=== PATIENT | female | born 1970 | race Caucasian/White ===

== ENCOUNTER 2016-12-26 08:39 | Emergency (ER) | payer SELFPAY ==
[~2016-12-26] VITALS: Ht 162.5 cm; Wt 81.6 kg
[~2016-12-26 08:39] MED LIST: ALBUTEROL0.09 MG/A2 INH; AMOXICILLIN500 MG PO; CLINDAMYCIN HC300 MG PO; DICLOFENAC POTA50 MG PO; FIORICET 325 MG1 TAB PO; HYDROCODONE BIT1 T11 PO; IRON325 M1 PO; LEVOXYL0.1 M1 PO; LOPRESSOR25 MG PO; MEGESTROL ACETA40 MG PO; MOTRIN600 MG PO; MOTRIN800 MG PO; Motrin,Rufen800 MG PO; NAPROSYN500 MG PO; NKHM; PENICILLIN V500 MG PO; PERCOCET 325 MG1 TA2 PO; PREDNISONE50 MG PO; TESSALON PERLE200 MG PO; ULTRAM50 MG PO; ZANTAC150 MG PO; ZITHROMAX Z-PA250 MG PO; ZITHROMAX250 MG PO; ZOVIRAX200 MG PO
[2016-12-26 08:43] VITALS: BP 138/74
[2016-12-26] MEDS ORDERED: MULTI VITAMINS1 TAB PO (08:47)
[2016-12-26] MEDS ORDERED: NAPROSYN500 MG PO (09:48)
== END 2016-12-26 09:54 | disposition home or self-care (01) ==
LOC: ED 08:39
DX: S46.912A Strain of unspecified muscle, fascia and tendon at shoulder and upper arm level, left arm, initial encounter (principal); E03.9 Hypothyroidism, unspecified; Z79.899 Other long term (current) drug therapy; X58.XXXA Exposure to other specified factors, initial encounter; Y93.89 Activity, other specified; Y92.9 Unspecified place or not applicable; Y99.9 Unspecified external cause status

== ENCOUNTER 2017-04-29 19:19 | Emergency (ER) | payer OTHER ==
[~2017-04-29] VITALS: Ht 160 cm; Wt 81.6 kg
[~2017-04-29 19:19] MED LIST changes: +MULTI VITAMINS1 TAB PO
[2017-04-29 19:43] VITALS: BP 154/79
== END 2017-04-29 23:51 | disposition home or self-care (01) ==
LOC: ED 19:19
DX: M25.552 Pain in left hip (principal); M54.2 Cervicalgia; M25.519 Pain in unspecified shoulder; E03.9 Hypothyroidism, unspecified; Z88.8 Allergy status to other drugs, medicaments and biological substances; Z79.899 Other long term (current) drug therapy; V43.52XA Car driver injured in collision with other type car in traffic accident, initial encounter; Y93.89 Activity, other specified; Y92.413 State road as the place of occurrence of the external cause; Y99.8 Other external cause status

== ENCOUNTER 2017-10-03 18:08 | Emergency (ER) | payer OTHER ==
[~2017-10-03] VITALS: Ht 160 cm; Wt 81.6 kg
[2017-10-03 18:13] VITALS: BP 133/79
[2017-10-03] MEDS ORDERED: CYCLOBENZAPRINE10 MG PO (20:11)
[2017-10-03] MEDS ORDERED: PREDNISONE10 MG PO (20:11)
== END 2017-10-03 20:30 | disposition home or self-care (01) ==
LOC: ED 18:08
DX: M54.32 Sciatica, left side (principal); Z79.899 Other long term (current) drug therapy; Z88.8 Allergy status to other drugs, medicaments and biological substances

== ENCOUNTER 2019-07-08 18:09 | Emergency (ER) | payer OTHER ==
[~2019-07-08] VITALS: Ht 160 cm; Wt 81.6 kg
[~2019-07-08 18:09] MED LIST changes: +CYCLOBENZAPRINE10 MG PO; +CYCLOBENZAPRINE5 M3 PO; +LEADER NATUR1000 MCG PO; +PREDNISONE10 MG PO; +VITAMIN D-32000 UNI1 PO
[2019-07-08 18:10] VITALS: BP 127/70
== END 2019-07-08 20:42 | disposition home or self-care (01) ==
LOC: ED 18:09
DX: S93.602A Unspecified sprain of left foot, initial encounter (principal); G43.909 Migraine, unspecified, not intractable, without status migrainosus; E07.9 Disorder of thyroid, unspecified; Z88.8 Allergy status to other drugs, medicaments and biological substances; Z79.899 Other long term (current) drug therapy; X50.1XXA Overexertion from prolonged static or awkward postures, initial encounter; Y93.89 Activity, other specified; Y92.89 Other specified places as the place of occurrence of the external cause; Y99.8 Other external cause status

== ENCOUNTER 2019-08-28 06:04 | Emergency (ER) | payer OTHER ==
[~2019-08-28] VITALS: Ht 162.5 cm; Wt 81.6 kg
[2019-08-28 07:21] LABS: EOS # 0.1 10*3/uL (0.0-0.4); EOS % 1.8 % (1.0-4.0); HEMATOCRIT 41.1 % (37.0-47.0); HEMOGLOBIN 13.5 g/dl (12.0-16.0); LYMPH # 1.5 10*3/uL (1.3-4.4); LYMPH % 38.3 % (27.0-41.0); MEAN CELL VOLUME 96.9 fl (81.0-99.0); MEAN CORPUSCULAR HGB 31.8 pg (27.0-31.0); MEAN CORPUSCULAR HGB CONC 32.8 g/dl (33.0-37.0); MEAN PLATELET VOLUME 10.5 fl (9.6-12.3); MONO # 0.3 10*3/uL (0.1-1.0); MONO % 7.6 % (3.0-9.0); NEUT # 1.9 10*3/uL (2.3-7.9); PLATELET COUNT AUTOMATED 231 10*3/uL (130-400); RED BLOOD COUNT 4.24 10*6/uL (4.10-5.10); RED CELL DISTRI WIDTH 12.1 % (0-14.5); WHITE BLOOD COUNT 3.8 10*3/uL (4.8-10.8)
[2019-08-28 07:31] LABS: ALBUMIN 3.9 gm/dl (3.1-4.5); ALKALINE PHOSPHATASE 74 U/L (45-117); BUN 10 mg/dl (7-24); CHLORIDE 110 mmol/L (98-107); CREATININE 0.86 mg/dL (0.55-1.02); POTASSIUM 4.3 mmol/L (3.5-5.1); SGOT/AST 134 IU/L (3-35); SGPT/ALT 156 U/L (12-78); SODIUM 140 mmol/L (136-145); TOTAL PROTEIN 7.6 gm/dL (6.4-8.2)
[2019-08-28 08:33] VITALS: BP 130/82
[2019-08-28] MEDS ORDERED: Motrin,Rufen800 MG PO (09:08)
[2019-08-28] MEDS ORDERED: ZITHROMAX250 MG PO (09:08)
== END 2019-08-28 09:12 | disposition home or self-care (01) ==
LOC: ED 06:04
PROVIDERS: Emergency Medicine
DX: J20.9 Acute bronchitis, unspecified (principal); R09.1 Pleurisy; G43.909 Migraine, unspecified, not intractable, without status migrainosus; E07.9 Disorder of thyroid, unspecified; E03.9 Hypothyroidism, unspecified; Z88.8 Allergy status to other drugs, medicaments and biological substances; Z79.899 Other long term (current) drug therapy

== ENCOUNTER → 2020-01-10 | Outpatient (CLI) | payer OTHER | LOC: MRI 13:00 | DX: H53.9 Unspecified visual disturbance (principal); R51 Headache; E03.9 Hypothyroidism, unspecified; R63.5 Abnormal weight gain ==

== ENCOUNTER → 2020-09-30 | Outpatient (CLI) | payer BC ==
[~2020-09-30] MED LIST changes: +CLEOCIN HCL300 MG PO
== END | disposition home or self-care (01) ==
LOC: COVID19 11:00
PROVIDERS: ATTEND Nurse Practitioner Family
DX: U07.1 COVID-19 (principal)

== ENCOUNTER 2020-10-25 23:59 | Emergency (ER) | payer BC ==
[~2020-10-25] VITALS: Ht 160 cm; Wt 81.6 kg
[~2020-10-25 23:59] MED LIST changes: -CLEOCIN HCL300 MG PO
[2020-10-26 00:06] VITALS: BP 131/71
[2020-10-26] MEDS ORDERED: CLEOCIN HCL300 MG PO (00:52)
== END 2020-10-26 01:10 | disposition home or self-care (01) ==
LOC: ED 23:59
DX: K08.89 Other specified disorders of teeth and supporting structures (principal); G43.909 Migraine, unspecified, not intractable, without status migrainosus; F41.9 Anxiety disorder, unspecified; Z88.8 Allergy status to other drugs, medicaments and biological substances; Z79.899 Other long term (current) drug therapy

== ENCOUNTER → 2020-12-30 | Outpatient (CLI) | payer BC ==
[~2020-12-30] MED LIST changes: +CLEOCIN HCL300 MG PO
== END | disposition home or self-care (01) ==
LOC: RAD 13:32
PROVIDERS: ATTEND Chiropractor
DX: M50.322 Other cervical disc degeneration at C5-C6 level (principal); M48.02 Spinal stenosis, cervical region; M25.78 Osteophyte, vertebrae

== ENCOUNTER → 2021-05-12 | Outpatient (CLI) | payer BC | END | disposition home or self-care (01) | LOC: RAD 11:04 | PROVIDERS: ATTEND Nurse Practitioner Family | DX: R19.7 Diarrhea, unspecified (principal); R05.9 Cough, unspecified; R53.83 Other fatigue; R11.0 Nausea ==

== ENCOUNTER 2021-12-07 08:36 | Emergency (ER) | payer BC ==
[~2021-12-07] VITALS: Wt 83.9 kg
[2021-12-07 08:47] VITALS: BP 133/58
[2021-12-07 09:15] LABS: BASO % 0.9 % (0.0-1.0); EOS # 0.1 10*3/uL (0.0-0.4); EOS % 1.5 % (1.0-4.0); HEMATOCRIT 43.4 % (37.0-47.0); LYMPH # 1.2 10*3/uL (1.3-4.4); LYMPH % 26.9 % (27.0-41.0); MEAN CELL VOLUME 95.6 fl (81.0-99.0); MEAN CORPUSCULAR HGB 32.4 pg (27.0-31.0); MEAN CORPUSCULAR HGB CONC 33.9 g/dl (33.0-37.0); MEAN PLATELET VOLUME 10.2 fl (9.6-12.3); MONO # 0.4 10*3/uL (0.1-1.0); MONO % 7.6 % (3.0-9.0); NEUT # 2.9 10*3/uL (2.3-7.9); NEUT % 62.9 % (47.0-73.0); PLATELET COUNT AUTOMATED 252 10*3/uL (130-400); RED BLOOD COUNT 4.54 10*6/uL (4.10-5.10); RED CELL DISTRI WIDTH 12.1 % (0-14.5); WHITE BLOOD COUNT 4.6 10*3/uL (4.8-10.8)
[2021-12-07 09:30] LABS: BILIRUBIN Negative (Negative); BLOOD Negative (Negative); CLARITY Clear (Clear); COLOR Yellow (Yellow); GLUCOSE Negative (Negative); KETONE Negative (Negative); LEUKO ESTERASE 1+ (Negative); NITRITE Negative (Negative); SPECIFIC GRAVITY 1.015 (1.001-1.030); UROBILINOGEN 0.2 E.U./dl (0.0-1.0)
[2021-12-07 09:35] LABS: BUN 14 mg/dl (7-24); CHLORIDE 105 mmol/L (98-107); CREATININE 0.94 mg/dL (0.55-1.02); SODIUM 140 mmol/L (136-145)
[2021-12-07 09:37] LABS: POTASSIUM 4.6 mmol/L (3.5-5.1)
[2021-12-07 09:41] LABS: BACTERIA 2+; MUCOUS 1+
[2021-12-07] MEDS ORDERED: TYLENOL325 M1 PO (10:02)
[2021-12-07] MEDS ORDERED: NAPROXEN250 MG PO (10:02)
[2021-12-07] MEDS ORDERED: CYCLOBENZAPRINE10 MG PO (10:02)
[2021-12-07] MEDS ORDERED: VOLTAREN ARTHRI20 GM T (10:38)
== END 2021-12-07 10:26 | disposition home or self-care (01) ==
LOC: ED 08:36
PROVIDERS: Emergency Medicine
DX: M54.50 Low back pain, unspecified (principal); Z88.8 Allergy status to other drugs, medicaments and biological substances; Z79.899 Other long term (current) drug therapy

== ENCOUNTER → 2022-06-17 | Outpatient (CLI) | payer BC ==
[~2022-06-17] MED LIST changes: +NAPROXEN250 MG PO; +TYLENOL325 M1 PO; +VOLTAREN ARTHRI20 GM T
== END | disposition home or self-care (01) ==
LOC: RAD 10:06
PROVIDERS: ATTEND Nurse Practitioner Family
DX: U07.1 COVID-19 (principal)

== ENCOUNTER → 2022-09-30 | Outpatient (CLI) | payer BC | END | disposition home or self-care (01) | LOC: CARD 14:27 | PROVIDERS: ATTEND Nurse Practitioner Family | DX: J06.9 Acute upper respiratory infection, unspecified (principal); R00.2 Palpitations; R53.83 Other fatigue ==

== ENCOUNTER → 2022-10-02 | Outpatient (CLI) | payer BC | END | disposition home or self-care (01) | LOC: LAB 12:16 | PROVIDERS: ATTEND Nurse Practitioner Family | DX: R70.0 Elevated erythrocyte sedimentation rate (principal) ==

== ENCOUNTER → 2022-10-21 | Outpatient (CLI) | payer BC | END | disposition home or self-care (01) | LOC: CARD 10:28 | PROVIDERS: ATTEND Nurse Practitioner Family | DX: R00.2 Palpitations (principal); J06.9 Acute upper respiratory infection, unspecified; R53.83 Other fatigue ==

== ENCOUNTER → 2022-12-01 | Outpatient (CLI) | payer BC ==
[~2022-12-01] MED LIST changes: +TOPROL XL25 MG PO
== END | disposition home or self-care (01) ==
LOC: CARD 00:11
PROVIDERS: ATTEND Internal Medicine Cardiovascular Disease
DX: I47.20 Ventricular tachycardia, unspecified (principal); R94.31 Abnormal electrocardiogram [ECG] [EKG]

== ENCOUNTER → 2023-04-02 | Outpatient (CLI) | payer BC ==
[2023-04-02 09:04] LABS: TOTAL PROTEIN 8.1 gm/dL (6.0-8.0)
[2023-04-03 08:09] LABS: HBSAG Negative (Negative); HEP B CORE AB, IGM Negative (Negative); HEPATITIS C ANTIBODY Non Reactive (Non Reactive)
== END | disposition home or self-care (01) ==
LOC: US 07:30 → LAB 07:33
PROVIDERS: ATTEND Nurse Practitioner Family
DX: K76.0 Fatty (change of) liver, not elsewhere classified (principal); R79.89 Other specified abnormal findings of blood chemistry; E03.9 Hypothyroidism, unspecified; R73.01 Impaired fasting glucose; I34.1 Nonrheumatic mitral (valve) prolapse; E66.9 Obesity, unspecified

== ENCOUNTER → 2023-05-12 | Outpatient (CLI) | payer BC | END | disposition home or self-care (01) | LOC: NM 02:04 | PROVIDERS: ATTEND Nurse Practitioner Family | DX: K76.0 Fatty (change of) liver, not elsewhere classified (principal); R10.9 Unspecified abdominal pain; M25.512 Pain in left shoulder ==

== ENCOUNTER → 2023-07-13 | Outpatient (CLI) | payer BC | END | disposition home or self-care (01) | LOC: RAD 13:37 | PROVIDERS: ATTEND Nurse Practitioner Family | DX: R68.84 Jaw pain (principal); R25.2 Cramp and spasm ==

== ENCOUNTER 2024-03-05 12:17 | Emergency (ER) | payer BC ==
[~2024-03-05] VITALS: Ht 160 cm; Wt 79.4 kg
[2024-03-05 13:03] VITALS: BP 120/49
[2024-03-05] MEDS ORDERED: Motrin,Rufen800 MG PO (15:29)
== END 2024-03-05 15:33 | disposition home or self-care (01) ==
LOC: ED 12:17
DX: S93.401A Sprain of unspecified ligament of right ankle, initial encounter (principal); G43.909 Migraine, unspecified, not intractable, without status migrainosus; F41.9 Anxiety disorder, unspecified; I10 Essential (primary) hypertension; Z88.8 Allergy status to other drugs, medicaments and biological substances; Z98.890 Other specified postprocedural states; W10.9XXA Fall (on) (from) unspecified stairs and steps, initial encounter; Y93.89 Activity, other specified; Y92.89 Other specified places as the place of occurrence of the external cause; Y99.8 Other external cause status

== ENCOUNTER → 2024-03-22 | Outpatient (CLI) | payer BC ==
[2024-03-22 08:55] LABS: BASO % 0.7 % (0.0-1.0); EOS # 0.1 10*3/uL (0.0-0.4); EOS % 1.5 % (1.0-4.0); HEMATOCRIT 41.7 % (37.0-47.0); LYMPH # 1.2 10*3/uL (1.3-4.4); LYMPH % 30.8 % (27.0-41.0); MEAN CELL VOLUME 96.8 fl (81.0-99.0); MEAN CORPUSCULAR HGB 33.2 pg (27.0-31.0); MEAN CORPUSCULAR HGB CONC 34.3 g/dl (33.0-37.0); MEAN PLATELET VOLUME 10.2 fl (9.6-12.3); MONO # 0.3 10*3/uL (0.1-1.0); MONO % 6.7 % (3.0-9.0); NEUT # 2.4 10*3/uL (2.3-7.9); NEUT % 60.3 % (47.0-73.0); PLATELET COUNT AUTOMATED 240 10*3/uL (130-400); RED BLOOD COUNT 4.31 10*6/uL (4.10-5.10); RED CELL DISTRI WIDTH 11.9 % (0-14.5)
[2024-03-22 09:23] LABS: ALKALINE PHOSPHATASE 63 U/L (46-116); BUN 9 mg/dl (9-23); CHLORIDE 105 mmol/L (98-107); CHOLESTEROL 242 mg/dL (<200); LDL CHOLESTEROL 158 mg/dL (9-159); POTASSIUM 4.1 mmol/L (3.4-5.1); SGPT/ALT 37 U/L (5-49); TOTAL PROTEIN 7.6 gm/dL (6.0-8.0); TRIGLYCERIDES 150 mg/dl (<150)
== END | disposition home or self-care (01) ==
LOC: LAB 08:30 → RAD 08:30
PROVIDERS: ATTEND Nurse Practitioner Family
DX: R07.9 Chest pain, unspecified (principal); E78.2 Mixed hyperlipidemia; Z82.49 Family history of ischemic heart disease and other diseases of the circulatory system

== ENCOUNTER → 2024-03-27 | Outpatient (CLI) | payer BC | END | disposition home or self-care (01) | LOC: CARD 00:03 | PROVIDERS: ATTEND Internal Medicine Cardiovascular Disease | DX: R07.9 Chest pain, unspecified (principal); E78.2 Mixed hyperlipidemia; Z82.49 Family history of ischemic heart disease and other diseases of the circulatory system ==

== ENCOUNTER 2024-05-07 19:22 | Emergency (ER) | payer BC ==
[~2024-05-07] VITALS: Ht 160 cm; Wt 81.6 kg
[2024-05-07 19:56] VITALS: BP 120/70
[2024-05-07] MEDS ORDERED: FLUORESCEIN SODIUM 1 MG STRIP OPH ONE (20:35)
[2024-05-07] MEDS ORDERED: Tetracaine Hydrochloride 0.5% 4 ML BOT OPH ONE (20:35)
[2024-05-07 21:01] LABS: BASO % 0.3 % (0.0-1.0); EOS % 0.6 % (1.0-4.0); LYMPH # 1.2 10*3/uL (1.3-4.4); LYMPH % 17.2 % (27.0-41.0); MEAN CELL VOLUME 96.3 fl (81.0-99.0); MEAN CORPUSCULAR HGB 32.8 pg (27.0-31.0); MEAN PLATELET VOLUME 9.8 fl (9.6-12.3); MONO # 0.4 10*3/uL (0.1-1.0); MONO % 5.7 % (3.0-9.0); NEUT # 5.3 10*3/uL (2.3-7.9); NEUT % 75.9 % (47.0-73.0); PLATELET COUNT AUTOMATED 236 10*3/uL (130-400); RED BLOOD COUNT 4.36 10*6/uL (4.10-5.10); RED CELL DISTRI WIDTH 11.8 % (0-14.5)
[2024-05-07 21:20] LABS: BUN 9 mg/dl (9-23); CHLORIDE 105 mmol/L (98-107)
[2024-05-07] MEDS ORDERED: fentaNYL CITRATE 100 MCG/2 ML VIAL IV ONE (23:05)
[2024-05-07] MEDS ORDERED: Valacyclovir Hydrochloride 500 MG CAP PO ONE (23:20)
[2024-05-07] MEDS ORDERED: ERYTHROMYCIN 1 GM TUBE OPH ONE (23:20)
[2024-05-07] MEDS ORDERED: Acetaminophen/Hydrocodone 5 MG/325 MG TABLET PO ONE ×2 (23:20→23:40)
[2024-05-07] MEDS ORDERED: VALTREX1000 MG PO (23:35)
== END 2024-05-07 23:59 | disposition home or self-care (01) ==
LOC: ED 19:22
PROVIDERS: Emergency Medicine
DX: S05.02XA Injury of conjunctiva and corneal abrasion without foreign body, left eye, initial encounter (principal); G43.909 Migraine, unspecified, not intractable, without status migrainosus; F41.9 Anxiety disorder, unspecified; I10 Essential (primary) hypertension; E03.9 Hypothyroidism, unspecified; Z88.8 Allergy status to other drugs, medicaments and biological substances; Z98.890 Other specified postprocedural states; X58.XXXA Exposure to other specified factors, initial encounter; Y93.89 Activity, other specified; Y92.89 Other specified places as the place of occurrence of the external cause; Y99.8 Other external cause status

== ENCOUNTER → 2024-07-18 | Outpatient (CLI) | payer BC ==
[~2024-07-18] MED LIST changes: +VALTREX1000 MG PO
== END | disposition home or self-care (01) ==
LOC: US 08:00
PROVIDERS: ATTEND Nurse Practitioner Family
DX: E04.2 Nontoxic multinodular goiter (principal); Z86.39 Personal history of other endocrine, nutritional and metabolic disease

== ENCOUNTER → 2024-08-31 | Outpatient (CLI) | payer BC | END | disposition home or self-care (01) | LOC: MAMMO 03:13 | PROVIDERS: ATTEND Nurse Practitioner Family | DX: Z12.31 Encounter for screening mammogram for malignant neoplasm of breast (principal); N64.89 Other specified disorders of breast ==

== ENCOUNTER 2025-02-24 15:27 | Emergency (ER) | payer BC ==
[~2025-02-24] VITALS: Ht 160 cm; Wt 77.1 kg
[2025-02-24 15:45] VITALS: BP 138/61
[2025-02-24] MEDS ORDERED: CONTRAVE ER 8-1 EACH PO (15:46)
[2025-02-24] MEDS ORDERED: Dexamethasone Sodium Phospha 20 MG/5 ML VIAL IV ONE (16:15)
[2025-02-24] MEDS ORDERED: diphenhydrAMINE hydrochloride 50 MG/ML VIAL IV ONE (16:15)
[2025-02-24] MEDS ORDERED: SODIUM CHLORIDE 0.9% 1,000 ML IV ONE (16:15)
[2025-02-24] MEDS ORDERED: Ondansetron Hydrochloride 4 MG/2 ML VIAL IV ONE (16:15)
[2025-02-24 17:10] LABS: BASO # 0.0 10*3/uL (0.0-0.1); BASO % 0.1 % (0.0-1.0); EOS # 0.0 10*3/uL (0.0-0.4); EOS % 0.0 % (1.0-4.0); MEAN CELL VOLUME 95.4 fl (81.0-99.0); MEAN CORPUSCULAR HGB 33.5 pg (27.0-31.0); MEAN PLATELET VOLUME 10.0 fl (9.6-12.3); MONO # 0.2 10*3/uL (0.1-1.0); MONO % 2.0 % (3.0-9.0); NEUT # 6.6 10*3/uL (2.3-7.9); NEUT % 89.8 % (47.0-73.0); NUCLEATED RED BLOOD CELL 0.0 % (0.0-0.0); NUCLEATED RED BLOOD CELL 0.0 10*3/uL (0.0-0.0); PLATELET COUNT AUTOMATED 229 10*3/uL (130-400); RED CELL DISTRI WIDTH 11.8 % (0-14.5)
[2025-02-24 18:12] LABS: BILIRUBIN Negative (Negative); BLOOD Negative (Negative); CLARITY Clear (Clear); COLOR Yellow (Yellow); KETONE Negative (Negative); LEUKO ESTERASE Negative (Negative); NITRITE Negative (Negative); SPECIFIC GRAVITY 1.015 (1.001-1.030); UROBILINOGEN 0.2 E.U./dl (0.0-1.0)
[2025-02-24 18:15] LABS: PH 8.5 (4.5-8.0)
[2025-02-24 18:19] LABS: EPITHELIAL CELLS 0-2; RBC 0-2 rbc/hpf (0-2); WBC 0-2 wbc/hpf (0-5)
[2025-02-24 18:28] LABS: BUN 8 mg/dl (9-23)
== END 2025-02-24 19:01 | disposition home or self-care (01) ==
LOC: ED 15:27
PROVIDERS: Nurse Practitioner Family
DX: G43.909 Migraine, unspecified, not intractable, without status migrainosus (principal); M25.512 Pain in left shoulder; Z88.8 Allergy status to other drugs, medicaments and biological substances; Z79.899 Other long term (current) drug therapy